=== PATIENT | female | born 1990 | race Two or more races ===

== ENCOUNTER → 2025-02-09 | Outpatient (CLI) | payer BC ==
[2025-02-09 10:00] LABS: Nucleated Red Blood Cells % 0.1 %
[2025-02-09 10:02] LABS: Hematocrit 36.5 % (36.0-46.0); Hemoglobin 11.7 g/dL (12.2-16.2); Mean Corpuscular Hemoglobin 23.4 pg (28.0-32.0); Mean Corpuscular Volume 73.1 fL (80.0-100.0)
[2025-02-09 10:11] LABS: Alanine Aminotransferase 22 U/L (7-40); Alkaline Phosphatase 105 U/L (46-116); Anion Gap 10 (5-15); BUN/Creatinine Ratio 13.0 (10.0-20.0); Blood Urea Nitrogen 10 mg/dL (9-23); Calcium 9.2 mg/dL (8.7-10.4); Carbon Dioxide 25 mmol/L (20-31); Chloride 105 mmol/L (98-107); Cholesterol 194 mg/dL (< 200); Glucose 92 mg/dL (74-106); Potassium 3.8 mmol/L (3.5-5.1); Sodium 140 mmol/L (136-145); Total Protein 7.7 g/dL (5.7-8.2); Triglycerides 82 mg/dL (< 150)
[2025-02-09 10:44] LABS: Albumin 4.8 g/dL (3.2-4.8); Bilirubin, Total 0.3 mg/dL (0.2-1.0); HDL Cholesterol 84 mg/dL (40-59)
[2025-02-09 14:03] LABS: Hepatitis A Total Antibody Positive (Negative); Hepatitis C Antibody Negative (Negative)
[2025-02-09 14:04] LABS: Hepatitis B Surface Antigen Negative (Negative)
== END | disposition home or self-care (01) ==
LOC: LAB 09:19
PROVIDERS: ATTEND Licensed Practical Nurse
DX: E55.9 Vitamin D deficiency, unspecified (principal); Z13.29 Encounter for screening for other suspected endocrine disorder; Z13.220 Encounter for screening for lipoid disorders; Z00.01 Encounter for general adult medical examination with abnormal findings; Z13.6 Encounter for screening for cardiovascular disorders; Z13.1 Encounter for screening for diabetes mellitus
CPT/HCPCS: 36415; 80053; 80061; 82043; 82306; 82728; 83036; 84443; 85025; 86704; 86706; 86708; 86803; 87340

== ENCOUNTER → 2025-03-23 | Outpatient (CLI) | payer BC ==
[2025-03-23 10:05] LABS: Nucleated Red Blood Cells % 0.0 %
[2025-03-23 10:07] LABS: Hematocrit 35.5 % (36.0-46.0); Hemoglobin 11.4 g/dL (12.2-16.2); Mean Corpuscular Hemoglobin 23.7 pg (28.0-32.0); Mean Corpuscular Volume 73.7 fL (80.0-100.0)
[2025-03-23 10:47] LABS: Iron 68.0 ug/dL (50-170)
[2025-03-23 10:50] LABS: Total Iron Binding Capacity 417.0 ug/dL (250-425)
== END | disposition home or self-care (01) ==
LOC: LAB 09:36
PROVIDERS: ATTEND Licensed Practical Nurse
DX: D50.0 Iron deficiency anemia secondary to blood loss (chronic) (principal); R53.1 Weakness
CPT/HCPCS: 36415; 83540; 83550; 85025